=== PATIENT | female | born 1995 | race African-American/Black ===

== ENCOUNTER 2016-06-04 00:10 | Emergency (ER) | payer OTHER ==
[~2016-06-04] VITALS: Ht 170.2 cm; Wt 85.0 kg
[~2016-06-04 00:10] MED LIST: ABILIFY; ALBU17AE26; LITHIUM
[2016-06-04 00:20] VITALS: BP 114/65
== END 2016-06-04 00:45 | disposition home or self-care (01) ==
LOC: ER 00:10
DX: S61.305A Unspecified open wound of left ring finger with damage to nail, initial encounter (principal); Z91.018 Allergy to other foods; J45.909 Unspecified asthma, uncomplicated; F12.10 Cannabis abuse, uncomplicated; Z88.8 Allergy status to other drugs, medicaments and biological substances; Z88.0 Allergy status to penicillin; Z79.899 Other long term (current) drug therapy; W23.0XXA Caught, crushed, jammed, or pinched between moving objects, initial encounter; Y93.89 Activity, other specified; Y99.9 Unspecified external cause status; Y92.89 Other specified places as the place of occurrence of the external cause
CPT/HCPCS: 99281

== ENCOUNTER 2016-06-11 11:58 | Emergency (ER) | payer OTHER ==
[~2016-06-11] VITALS: Ht 170.2 cm; Wt 82.0 kg
[2016-06-11] MEDS ORDERED: VISCOUS LIDOCAINE 2% 15 ML UDC PO STA (12:44)
[2016-06-11] MEDS ORDERED: FAMOTIDINE 20MG/2ML VIAL IV STA (12:44)
[2016-06-11] MEDS ORDERED: DICYCLOMINE 10 MG/5 ML ORAL SYR PO STA (12:44)
[2016-06-11] MEDS ORDERED: MAGNESIUM/ALUMINUM HYDROXIDE/SIMETHICONE 30ML UDC PO STA (12:44)
[2016-06-11] MEDS ORDERED: MORPHINE SULFATE 4 MG/ML CPJ (NOT FOR IM USE) IV STA (12:44)
[2016-06-11] MEDS ORDERED: ONDANSETRON HCL 4MG/2ML VIAL IV STA (12:44)
[2016-06-11 13:13] LABS: BASOPHILS % 0.6 % (0.0-2.0); EOSINOPHILS % 0.9 % (0.0-5.0); HEMATOCRIT. 40.9 % (36.0-48.0); HEMOGLOBIN. 13.9 g/dL (12.0-16.0); LYMPHOCYTES % 28.9 % (20.0-50.0); MEAN CORPUSCULAR HGB CONC 33.9 g/dL (31.0-37.0); MEAN CORPUSCULAR VOLUME 91.6 fL (81.0-99.0); MEAN PLATELET VOLUME 6.9 fl (7.4-10.4); MONOCYTES % 5.3 % (2.0-8.0); NEUTROPHILS % 64.3 % (40.0-76.0); PLATELET 309 x1000/uL (130-400); RED BLOOD CELL COUNT 4.47 mill/uL (4.2-5.4); RED CELL DISTRIBUTION WIDTH 13.6 % (11.6-14.6)
[2016-06-11 13:20] LABS: CHLORIDE 107 mEq/L (98-107); INDEX HEMOLYSI 1 (1-3); INDEX ICTERIC 1 (1-4); INDEX LIPEMIC 1 (1-3); PROTHROMBIN TIME 10.8 sec
[2016-06-11 13:28] LABS: ALANINE AMINOTRANSFERASE 17 IU/L (13-61); ALBUMIN 3.7 g/dL (3.4-5.0); ANION GAP 10; CALCIUM 8.8 mg/dL (8.5-10.1); CARBON DIOXIDE 27 mEq/L (21-32); LIPASE 174 IU/L (73-393); UREA NITROGEN BLOOD 11 mg/dL (7-21); eGFR > 60 mL/min (>60)
[2016-06-11 13:30] LABS: CLARITY URINE CLEAR (CLEAR); COLOR URINE YELLOW (YELLOW); GLUCOSE URINE NEGATIVE (NEGATIVE); KETONES URINE TRACE (NEGATIVE); LEUKOCYTE ESTERASE URINE NEGATIVE (NEGATIVE); NITRITE URINE NEGATIVE (NEGATIVE); OCCULT BLOOD URINE NEGATIVE (NEGATIVE); PH URINE 6.5 (4.5-8.0); PROTEIN URINE NEGATIVE (NEGATIVE); SPECIFIC GRAVITY URINE 1.033 (1.005-1.030)
[2016-06-11 14:09] VITALS: BP 130/82
== END 2016-06-11 14:12 | disposition home or self-care (01) ==
LOC: ER 13:12
DX: R10.13 Epigastric pain (principal); K92.1 Melena; J45.909 Unspecified asthma, uncomplicated; F12.10 Cannabis abuse, uncomplicated; Z87.11 Personal history of peptic ulcer disease; Z88.0 Allergy status to penicillin; Z87.19 Personal history of other diseases of the digestive system; Z88.2 Allergy status to sulfonamides
CPT/HCPCS: 36415; 80053; 81003; 81025; 82270; 83690; 85025; 85610; 96374; 96375; 99284; J2270; J2405; J3490; Z7610

== ENCOUNTER 2016-06-16 02:22 | Emergency (ER) | payer OTHER ==
[~2016-06-16] VITALS: Ht 170.2 cm; Wt 81.0 kg
[2016-06-16 05:00] VITALS: BP 119/67
[2016-06-16] MEDS ORDERED: MAGNESIUM/ALUMINUM HYDROXIDE/SIMETHICONE 30ML UDC PO STA (05:01)
[2016-06-16] MEDS ORDERED: DICYCLOMINE 10 MG/5 ML ORAL SYR PO STA (05:01)
[2016-06-16] MEDS ORDERED: FAMOTIDINE 20MG TABLET PO ONE (05:15)
[2016-06-16] MEDS ORDERED: ONDANSETRON 4MG ODT PO ONE (05:15)
[2016-06-16] MEDS ORDERED: ACETAMINOPHEN 500MG TABLET PO ONE (05:15)
[2016-06-16 05:27] LABS: INR 1.1; PROTHROMBIN TIME 11.1 sec
[2016-06-16 05:36] LABS: BASOPHILS % 0.3 % (0.0-2.0); EOSINOPHILS % 1.1 % (0.0-5.0); HEMATOCRIT. 35.7 % (36.0-48.0); LYMPHOCYTES % 22.9 % (20.0-50.0); MEAN CORPUSCULAR HEMOGLOBIN 30.5 pg (28.0-32.0); MEAN CORPUSCULAR HGB CONC 33.7 g/dL (31.0-37.0); MEAN CORPUSCULAR VOLUME 90.4 fL (81.0-99.0); MEAN PLATELET VOLUME 7.2 fl (7.4-10.4); MONOCYTES % 6.1 % (2.0-8.0); NEUTROPHILS % 69.6 % (40.0-76.0); PLATELET 286 x1000/uL (130-400); RED BLOOD CELL COUNT 3.95 mill/uL (4.2-5.4); RED CELL DISTRIBUTION WIDTH 13.1 % (11.6-14.6); WHITE BLOOD COUNT 7.8 x1000/uL (4.5-11.0)
[2016-06-16 05:37] LABS: ALANINE AMINOTRANSFERASE 13 IU/L (13-61); ALBUMIN 3.4 g/dL (3.4-5.0); ANION GAP 9; CALCIUM 8.7 mg/dL (8.5-10.1); CARBON DIOXIDE 25 mEq/L (21-32); CHLORIDE 110 mEq/L (98-107); INDEX HEMOLYSI 1 (1-3); INDEX ICTERIC 1 (1-4); INDEX LIPEMIC 1 (1-3); LIPASE 152 IU/L (73-393); UREA NITROGEN BLOOD 8 mg/dL (7-21); eGFR > 60 mL/min (>60)
[2016-06-16 06:48] LABS: CLARITY URINE CLEAR (CLEAR); COLOR URINE YELLOW (YELLOW); GLUCOSE URINE NEGATIVE (NEGATIVE); KETONES URINE NEGATIVE (NEGATIVE); LEUKOCYTE ESTERASE URINE NEGATIVE (NEGATIVE); NITRITE URINE NEGATIVE (NEGATIVE); OCCULT BLOOD URINE NEGATIVE (NEGATIVE); PH URINE 5.5 (4.5-8.0); PROTEIN URINE NEGATIVE (NEGATIVE); SPECIFIC GRAVITY URINE 1.026 (1.005-1.030); UROBILINOGEN URINE 0.2 E.U./dL (0.2-1.0)
== END 2016-06-16 07:13 | disposition home or self-care (01) ==
LOC: ER 04:11
DX: K29.00 Acute gastritis without bleeding (principal); R10.13 Epigastric pain; K21.9 Gastro-esophageal reflux disease without esophagitis; J06.9 Acute upper respiratory infection, unspecified; J45.909 Unspecified asthma, uncomplicated; H92.09 Otalgia, unspecified ear; F12.10 Cannabis abuse, uncomplicated; Z88.0 Allergy status to penicillin; Z87.19 Personal history of other diseases of the digestive system; Z88.2 Allergy status to sulfonamides
CPT/HCPCS: 36415; 80053; 81003; 83690; 85025; 85610; 93005; 99285; Q0162

== ENCOUNTER 2017-02-10 22:06 | Emergency (ER) | payer OTHER ==
[~2017-02-10] VITALS: Ht 170.2 cm; Wt 96.0 kg
[2017-02-10 22:36] VITALS: BP 138/87
[2017-02-11] MEDS ORDERED: LIDOCAINE HCL 1% 20ML VIAL (Pyxis) INJ INFIL ONE (00:30)
[2017-02-11] MEDS ORDERED: BACITRACIN ZINC OINT UDPKT TOP ONE (00:30)
== END 2017-02-11 01:06 | disposition home or self-care (01) ==
LOC: ER 22:06
DX: L91.8 Other hypertrophic disorders of the skin (principal); L03.111 Cellulitis of right axilla; J45.909 Unspecified asthma, uncomplicated; Z88.0 Allergy status to penicillin; Z88.2 Allergy status to sulfonamides; Z88.1 Allergy status to other antibiotic agents
CPT/HCPCS: 11200; 99284; J3490; Z7610

== ENCOUNTER 2017-04-26 21:17 | Emergency (ER) | payer MEDICAID, OTHER ==
[~2017-04-26] VITALS: Ht 170.2 cm; Wt 91.0 kg
[2017-04-27] MEDS ORDERED: VISCOUS LIDOCAINE 2% 15 ML UDC PO STA (06:23)
[2017-04-27] MEDS ORDERED: MAGNESIUM/ALUMINUM HYDROXIDE/SIMETHICONE 30ML UDC PO STA (06:23)
[2017-04-27] MEDS ORDERED: ONDANSETRON 4MG ODT PO ONE (06:30)
[2017-04-27 06:41] LABS: BASOPHILS % 0.4 % (0.0-2.0); EOSINOPHILS % 2.2 % (0.0-5.0); HEMATOCRIT. 36.8 % (36.0-48.0); HEMOGLOBIN. 12.3 g/dL (12.0-16.0); MEAN CORPUSCULAR HEMOGLOBIN 30.2 pg (28.0-32.0); MEAN CORPUSCULAR VOLUME 90.1 fL (81.0-99.0); MEAN PLATELET VOLUME 7.1 fl (7.4-10.4); MONOCYTES % 7.7 % (2.0-8.0); NEUTROPHILS % 56.7 % (40.0-76.0); PLATELET 302 x1000/uL (130-400); RED BLOOD CELL COUNT 4.09 mill/uL (4.2-5.4); RED CELL DISTRIBUTION WIDTH 13.6 % (11.6-14.6)
[2017-04-27 06:44] LABS: INR 1.1
[2017-04-27 06:51] LABS: CHLORIDE 109 mEq/L (98-107)
[2017-04-27 06:52] LABS: CLARITY URINE CLOUDY (CLEAR); COLOR URINE YELLOW (YELLOW); KETONES URINE NEGATIVE (NEGATIVE); LEUKOCYTE ESTERASE URINE NEGATIVE (NEGATIVE); NITRITE URINE NEGATIVE (NEGATIVE); OCCULT BLOOD URINE NEGATIVE (NEGATIVE); PH URINE 5.5 (4.5-8.0); PROTEIN URINE NEGATIVE (NEGATIVE); SPECIFIC GRAVITY URINE 1.027 (1.005-1.030); UROBILINOGEN URINE 0.2 E.U./dL (0.2-1.0)
[2017-04-27 06:59] LABS: HCG SCREEN NEGATIVE
[2017-04-27 08:47] VITALS: BP 107/70
== END 2017-04-27 08:57 | disposition home or self-care (01) ==
LOC: ER 21:17
DX: R10.13 Epigastric pain (principal); R11.2 Nausea with vomiting, unspecified; J45.909 Unspecified asthma, uncomplicated; Z88.0 Allergy status to penicillin; Z88.2 Allergy status to sulfonamides; Z88.1 Allergy status to other antibiotic agents
CPT/HCPCS: 36415; 80053; 81001; 83690; 84703; 85025; 85610; 99284; Q0162; Z7610

== ENCOUNTER 2017-09-01 20:32 | Emergency (ER) | payer MEDICAID ==
[2017-09-02] MEDS ORDERED: KETOROLAC 30MG/ML VIAL IM STA (00:34)
[2017-09-02 02:57] VITALS: BP 111/68
== END 2017-09-02 03:39 | disposition home or self-care (01) ==
LOC: ER 09-02 02:46
DX: R51 Headache (principal); J45.909 Unspecified asthma, uncomplicated; Z88.0 Allergy status to penicillin; Z88.1 Allergy status to other antibiotic agents; Z88.2 Allergy status to sulfonamides
CPT/HCPCS: 70450; 81025; 96372; 99284; J1885; Z7610

== ENCOUNTER 2017-10-28 22:58 | Emergency (ER) | payer MEDICAID ==
[~2017-10-28] VITALS: Ht 165.1 cm; Wt 88.0 kg
[2017-10-28 23:33] VITALS: BP 105/64
[2017-10-29 00:36] LABS: CLARITY URINE CLOUDY (CLEAR); COLOR URINE YELLOW (YELLOW); KETONES URINE TRACE (NEGATIVE); LEUKOCYTE ESTERASE URINE 2+ (NEGATIVE); NITRITE URINE NEGATIVE (NEGATIVE); OCCULT BLOOD URINE NEGATIVE (NEGATIVE); PH URINE 5.5 (4.5-8.0); PROTEIN URINE 1+ (NEGATIVE); SPECIFIC GRAVITY URINE 1.029 (1.005-1.030); UROBILINOGEN URINE 0.2 E.U./dL (0.2-1.0)
== END 2017-10-29 00:50 | disposition left against medical advice (07) ==
LOC: ER 22:58
DX: Z53.21 Procedure and treatment not carried out due to patient leaving prior to being seen by health care provider (principal); J45.909 Unspecified asthma, uncomplicated; Z88.0 Allergy status to penicillin; Z88.2 Allergy status to sulfonamides; Z88.8 Allergy status to other drugs, medicaments and biological substances
CPT/HCPCS: 81003; 81025; 87077; 87086; 87186

== ENCOUNTER 2018-07-25 17:20 | Emergency (ER) | payer MEDICAID ==
[~2018-07-25] VITALS: Ht 170.2 cm; Wt 100.0 kg
[2018-07-25 21:30] VITALS: BP 114/85
[2018-07-25] MEDS ORDERED: LIDOCAINE 1%/EPI 1:100,000 10 ML VIAL IJ ONE (22:30)
[2018-07-25] MEDS ORDERED: IBUPROFEN 600MG TABLET PO ONE (22:30)
[2018-07-25] MEDS ORDERED: BACITRACIN ZINC OINT UDPKT TOP ONE (22:30)
== END 2018-07-25 23:07 | disposition left against medical advice (07) ==
LOC: ER 17:20
DX: R51 Headache (principal); Z53.21 Procedure and treatment not carried out due to patient leaving prior to being seen by health care provider
CPT/HCPCS: J3490

== ENCOUNTER 2018-09-03 22:21 | Emergency (ER) | payer MEDICAID ==
[~2018-09-03] VITALS: Ht 170.2 cm; Wt 93.0 kg
[2018-09-03] MEDS ORDERED: MORPHINE SULFATE 4 MG/ML CPJ (NOT FOR IM USE) IV STA (23:34)
[2018-09-03] MEDS ORDERED: SODIUM CHLORIDE 0.9% 1,000 ML IV ONE (23:34)
[2018-09-03] MEDS ORDERED: ONDANSETRON HCL 4MG/2ML INJ IV STA (23:34)
[2018-09-03 23:54] LABS: BASOPHILS % 0.7 % (0.0-2.0); EOSINOPHILS % 1.6 % (0.0-5.0); HEMATOCRIT. 36.4 % (36.0-48.0); HEMOGLOBIN. 12.6 g/dL (12.0-16.0); LYMPHOCYTES % 24.8 % (20.0-50.0); MEAN CORPUSCULAR HEMOGLOBIN 31.7 pg (28.0-32.0); MEAN CORPUSCULAR VOLUME 91.4 fL (81.0-99.0); MEAN PLATELET VOLUME 7.1 fl (7.4-10.4); MONOCYTES % 12.5 % (2.0-8.0); NEUTROPHILS % 60.4 % (40.0-76.0); PLATELET 264 x1000/uL (130-400); RED BLOOD CELL COUNT 3.98 mill/uL (4.2-5.4); RED CELL DISTRIBUTION WIDTH 13.1 % (11.6-14.6)
[2018-09-03 23:57] LABS: CHLORIDE 110 mEq/L (98-107)
[2018-09-03 23:57] LABS: CLARITY URINE CLEAR (CLEAR); COLOR URINE YELLOW (YELLOW); KETONES URINE NEGATIVE (NEGATIVE); LEUKOCYTE ESTERASE URINE TRACE (NEGATIVE); NITRITE URINE NEGATIVE (NEGATIVE); OCCULT BLOOD URINE NEGATIVE (NEGATIVE); PH URINE 5.5 (4.5-8.0); PROTEIN URINE NEGATIVE (NEGATIVE); SPECIFIC GRAVITY URINE 1.024 (1.005-1.030); UROBILINOGEN URINE 0.2 E.U./dL (0.2-1.0)
[2018-09-04 00:09] LABS: HCG SCREEN NEGATIVE
[2018-09-04] MEDS ORDERED: MORPHINE SULFATE 4 MG/ML CPJ (NOT FOR IM USE) IV ONE (00:30)
[2018-09-04] MEDS ORDERED: IOHEXOL-300 100 ML BOTTLE ONE (02:51)
[2018-09-04] MEDS ORDERED: KETOROLAC 30MG/ML VIAL IV STA (04:19)
[2018-09-04 05:00] VITALS: BP 120/64
== END 2018-09-04 05:07 | disposition home or self-care (01) ==
LOC: ER 22:21
DX: R10.31 Right lower quadrant pain (principal); J45.909 Unspecified asthma, uncomplicated; G43.909 Migraine, unspecified, not intractable, without status migrainosus; Z88.0 Allergy status to penicillin; Z88.2 Allergy status to sulfonamides; Z91.018 Allergy to other foods
CPT/HCPCS: 36415; 74177; 80053; 81003; 81025; 83690; 84703; 85025; 93005; 96361; 96374; 96375; 99284; J1885; J2270; J2405; J7030; Q9967

== ENCOUNTER 2019-08-20 19:37 | Emergency (ER) | payer MEDICAID, OTHER ==
[~2019-08-20] VITALS: Ht 167.6 cm; Wt 87.0 kg
[2019-08-20] MEDS ORDERED: IBUPROFEN 600MG TABLET PO ONE (20:00)
[2019-08-20] MEDS ORDERED: HYDROCODONE/ACETAMINOPHEN 5/325MG TABLET PO ONE (20:00)
[2019-08-20] MEDS ORDERED: TETRACAINE 0.5% OPHTH DROPS 4ML LEFTEYE ONE (21:45)
[2019-08-20] MEDS ORDERED: FLUORESCEIN SODIUM 1MG/STRIP LEFTEYE ONE (21:45)
[2019-08-20 22:34] VITALS: BP 138/71
== END 2019-08-20 22:35 | disposition home or self-care (01) ==
LOC: ER 19:37
DX: S02.32XA Fracture of orbital floor, left side, initial encounter for closed fracture (principal); S02.2XXA Fracture of nasal bones, initial encounter for closed fracture; F32.9 Major depressive disorder, single episode, unspecified; J45.909 Unspecified asthma, uncomplicated; G43.909 Migraine, unspecified, not intractable, without status migrainosus; Z91.018 Allergy to other foods; Z88.0 Allergy status to penicillin; Z88.2 Allergy status to sulfonamides; Y04.0XXA Assault by unarmed brawl or fight, initial encounter; Y93.89 Activity, other specified; Y92.018 Other place in single-family (private) house as the place of occurrence of the external cause
CPT/HCPCS: 70486; 81025; 99284